=== PATIENT | female | born 1995 | race Caucasian/White ===

== ENCOUNTER 2016-09-03 15:49 | Emergency (ER) | payer SELFPAY ==
[~2016-09-03] VITALS: Ht 167.6 cm; Wt 62.0 kg
[~2016-09-03 15:49] MED LIST: DICY1TAB26 PO; FAMO20 PO
[2016-09-03 15:51] VITALS: BP 139/79; PULSE 88; RESP 20; TEMP 98.8; O2SAT 100
[2016-09-03] MEDS ORDERED: LO LTAB PO (16:09)
--- NOTE | 2016-09-03 16:31 | PD ---
HPI Chief Complaint: GI Complaint Time Seen by Provider: 16:18 Travel History International Travel<30 days: No Contact w/Intl Traveler<30days: No Traveled to known affect area: No History of Present Illness HPI Patient is a healthy 21-year-old female presents emergency department with hematochezia. Earlier this week patient had 3 day episode of diarrhea. Describes this as frequent, watery stools. She had a slight amount of abdominal cramping prior to BM, all these symptoms have since resolved. Patient states that she had 2 bowel movements today, typical for her, and at the end of the bowel movement had a scant amount of bright red blood per rectum. No abdominal cramping, pain with BM. No history of inflammatory bowel disease, fevers, chills. PFSH Past Medical History Autoimmune Disease: No Anxiety: No Depression: No Cardiovascular Problems: No Diminished Hearing: No Gastrointestinal Disorders: No Genitourinary: No Hiatal Hernia: No Musculoskeletal: No Neurologic: No Psychiatric: No Reproductive: No Respiratory: No Immunizations Current: Yes Migraines: Yes Ulcer: No ?: Not LMP: 1 month ago : 0 Para: 0 Miscarriage: 0 : 0 Past Surgical History Abdominal Surgery: No Cardiac Surgery: No Ear Surgery: No Endocrine Surgery: No Eye Surgery: No Genitourinary Surgery: No Gynecologic Surgery: No Neurologic Surgery: No Oral Surgery: Yes (wisdom teeth) Thoracic Surgery: No Other Surgery: No Social History Alcohol Use: No Tobacco Use: No Substance Use: No Allergies-Medications (Allergen,Severity, Reaction): Coded Allergies: No Known Allergies (Verified , 09/03/16) Reported Meds & Prescriptions Reported Meds & Active Scripts Active Reported Lo Loestrin Fe 1/10 (Norethindrone-Ethinyl Estradiol-Fe) 1-10 Mg-Mcg Tab 1 Tab PO DAILY Review of Systems Except as stated in HPI: all other systems reviewed are Neg Physical Exam Narrative GENERAL: Well-appearing female in no acute distress SKIN: Focused skin assessment warm/dry. HEAD: Normocephalic. EYES: No scleral icterus. No injection or drainage. ENT: Mucous membranes pink and moist. NECK: Supple CARDIOVASCULAR: Regular rate and rhythm. RESPIRATORY: No accessory muscle use. GASTROINTESTINAL: Abdomen soft, non-tender, nondistended. RECTAL: Normal external rectal examination, no internal or external hemorrhoids. Minimally Hemoccult-positive. MUSCULOSKELETAL: Normal gait NEUROLOGICAL: Awake and alert. Normal speech. PSYCHIATRIC: Appropriate mood and affect; insight and judgment normal. Data Data Last Documented VS Vital Signs Date Time Temp Pulse Resp B/P Pulse Ox O2 Delivery O2 Flow Rate FiO2 09/03/16 15:51 98.8 88 20 139/79 100 Room Air MDM Medical Decision Making Medical Screen Exam Complete: Yes Emergency Medical Condition: Yes Medical Record Reviewed: Yes Differential Diagnosis 21-year-old female here with complaint of hematochezia. Diarrhea early in the week now resolved. Differential includes infectious diarrhea, dysentery, hemorrhoid, fissure, inflammatory bowel disease Narrative Course Benign abdominal examination, diarrhea has since resolved. Her Hemoccult is only faintly positive. No obvious hemorrhoid or fissure on exam. Suspect that this is residual from her earlier in the week episode of likely infectious diarrhea. At this point I would not confuse the picture was treating her with antibiotics as the diarrhea has since resolved. Patient was agreeable with watchful waiting. We'll return to the ER for the warning signs discussed and follow-up with primary care physician if symptoms persist for potential antibiotic therapy. HemaPrompt Point of Care Internal Pos. & Neg. Controls: Passed Fecal Specimen Occult Blood: Positive Diagnosis Primary Impression: Hematochezia Referrals: Primary Care Physician as needed Additional Instructions: If symptoms resolve, no follow-up is needed. Follow-up with primary care provider if symptoms persist and return to the ER for the warning signs discussed. Med/Other Pt SpecificInfo: No Change to Meds Disposition: 01 DISCHARGE HOME Condition: Stable Merced Marino MD September 03, 2016 16:31
== END 2016-09-03 17:04 | disposition home or self-care (01) ==
LOC: NEPC 15:49
DX: K92.1 Melena (principal)
CPT/HCPCS: 99284